=== PATIENT | male | born 1995 | race American Indian/Alaskan Native ===

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

== ENCOUNTER 2020-07-31 21:57 | Emergency (ER) | payer MEDICAID, OTHER, SELFPAY ==
[2020-07-31] MEDS ORDERED: LORazepam 2 MG/ML VIAL IM ONE ×2 (22:31→22:35)
[2020-07-31] MEDS ORDERED: HALOPERIDOL LACTATE 5 MG/1 ML INJ IM ONE (22:31)
[2020-07-31] MEDS ORDERED: diphenhydrAMINE 50 MG/ML VIAL IM ONE (22:32)
[2020-07-31 23:35] LABS: Basophils % (Auto) 0.7 % (0.0-1.8); Eosinophils % (Auto) 0.3 % (0.0-4.3); Hematocrit 36.2 % (35.5-45.6); Hemoglobin 12.4 gm/dl (11.8-15.2); Lymphocytes # (Auto) 0.5 K/mm3 (1.2-5.4); Lymphocytes % (Auto) 17.3 % (13.4-35.0); Mean Corpuscular HGB Conc 34 % (32-34); Mean Corpuscular Volume 86 fl (84-94); Monocytes # (Auto) 0.1 K/mm3 (0.0-0.8); Monocytes % (Auto) 4.7 % (0.0-7.3); Platelet Count 218 K/mm3 (140-440); Red Blood Count 4.22 M/mm3 (3.65-5.03); Red Cell Distribution Width 13.8 % (13.2-15.2)
[2020-07-31 23:59] LABS: BUN/Creatinine Ratio 14; Blood Urea Nitrogen 14 mg/dL (9-20); Calcium 9.1 mg/dL (8.4-10.2); Hemolysis Index 10
--- NOTE | 2020-08-01 00:14 | Emergency Department Report ---
ED Fever HPI - General Chief Complaint: Psych Stated Complaint: MH EVALUATION Time Seen by Provider: 07/31/20 22:25 ED Review of Systems ROS: Stated complaint: MH EVALUATION Other details as noted in HPI ED Past Medical Hx - Past Medical History Hx Psychiatric Treatment: Yes (ADD) - Surgical History Past Surgical History?: No - Social History Smoking Status: Unknown if ever smoked Substance Use Type: None - Medications Home Medications: Home Medications Medication Instructions Recorded Confirmed Last Taken Type No Known Home Medications [No 11/28/16 11/28/16 Unknown History Reported Home Medications] ED Physical Exam - General Limitations: No Limitations ED Course Vital Signs 07/31/20 22:01 Temperature 98.5 F Pulse Rate 134 H Respiratory 20 Rate Blood Pressure 139/60 O2 Sat by Pulse 97 Oximetry Critical care attestation.: If time is entered above; I have spent that time in minutes in the direct care of this critically ill patient, excluding procedure time. ED Disposition Condition: Stable
--- NOTE | 2020-08-01 00:18 | Emergency Department Report ---
ED Psych HPI - General Chief Complaint: Psych Stated Complaint: MH EVALUATION Time Seen by Provider: 07/31/20 22:25 Source: patient Mode of arrival: Ambulatory - History of Present Illness Initial Comments: Patient is presenting with aggressive behavior and appears altered. Patient verbally aggressive is also banging on the culver. Think he will actually say to me is that he wants me to call his mother but would not give his mother's name. Patient seems quite paranoid. No other history is known at this time. - Related Data Previous Rx's Medication Instructions Recorded Last Taken Type Divalproex Dr [DepaKOTE DR] 500 mg PO BID #60 tablet 08/04/20 Unknown Rx haloperidoL [Haldol] 5 mg PO QHS #30 tab 08/04/20 Unknown Rx Allergies Allergy/AdvReac Type Severity Reaction Status Date / Time No Known Allergies Allergy Unverified 10/17/13 14:18 ED Review of Systems ROS: Stated complaint: MH EVALUATION Other details as noted in HPI Comment: Unobtainable due to pts medical conditions ED Past Medical Hx - Past Medical History Hx Psychiatric Treatment: Yes (ADD) - Surgical History Past Surgical History?: No - Social History Smoking Status: Unknown if ever smoked Substance Use Type: None - Medications Home Medications: Home Medications Medication Instructions Recorded Confirmed Last Taken Type Divalproex Dr [DepaKOTE DR] 500 mg PO BID #60 tablet 08/04/20 Unknown Rx haloperidoL [Haldol] 5 mg PO QHS #30 tab 08/04/20 Unknown Rx ED Physical Exam - General Limitations: No Limitations General appearance: alert, in no apparent distress - Head Head exam: Present: atraumatic, normocephalic - Eye Eye exam: Present: normal appearance, PERRL, EOMI - ENT ENT exam: Present: mucous membranes moist - Neck Neck exam: Present: normal inspection - Respiratory Respiratory exam: Present: normal lung sounds bilaterally. Absent: respiratory distress, wheezes, rales, rhonchi - Cardiovascular Cardiovascular Exam: Present: normal rhythm, tachycardia, normal heart sounds. Absent: systolic murmur, diastolic murmur, rubs, gallop - GI/Abdominal GI/Abdominal exam: Present: soft, normal bowel sounds. Absent: distended, tenderness, guarding, rebound - Rectal Rectal exam: Present: deferred - Extremities Exam Extremities exam: Present: normal inspection - Back Exam Back exam: Present: normal inspection - Neurological Exam Neurological exam: Present: alert, oriented X3 - Psychiatric Psychiatric exam: Present: normal affect, normal mood - Skin Skin exam: Present: warm, dry, intact, normal color. Absent: rash ED Course Vital Signs 07/31/20 08/01/20 08/01/20 22:01 05:18 08:03 Temperature 98.5 F 98.6 F Pulse Rate 134 H 68 Respiratory 20 16 20 Rate Blood Pressure 139/60 Blood Pressure 125/50 [Left] O2 Sat by Pulse 97 97 97 Oximetry 08/01/20 08/01/20 08/02/20 09:00 19:00 02:00 Temperature 98.1 F 98.2 F Pulse Rate 89 64 Respiratory 18 18 16 Rate Blood Pressure Blood Pressure 99/73 115/64 [Left] O2 Sat by Pulse 97 98 97 Oximetry 08/02/20 08/02/20 08/03/20 07:39 19:25 00:15 Temperature 98.6 F 97.9 F 97.9 F Pulse Rate 61 81 65 Respiratory 20 18 18 Rate Blood Pressure Blood Pressure 110/70 101/56 126/62 [Left] O2 Sat by Pulse 98 99 100 Oximetry 08/03/20 08/03/20 08/03/20 07:50 13:45 19:31 Temperature 97.8 F 98.6 F 98.3 F Pulse Rate 86 82 84 Respiratory 20 16 17 Rate Blood Pressure 114/72 Blood Pressure 109/71 126/68 [Left] O2 Sat by Pulse 98 100 100 Oximetry 08/03/20 08/04/20 20:00 08:51 Temperature 97.6 F Pulse Rate 82 69 Respiratory 18 20 Rate Blood Pressure Blood Pressure 114/72 125/84 [Left] O2 Sat by Pulse 100 98 Oximetry - Reevaluation(s) Reevaluation #1: 08/04/20 11:23 [facility] Psychiatry Progress Note Patient Name: JAIMIE HARRIS Date of : 89 Patient Status: Emergency Emergency Provider: COLE BARRIENTOS Date: 08/04/20 10:41 Initialization Date: 08/04/20 10:41 Subjective - Reason for Consult Consult date: 08/04/20 Reason for consult: MHE Requesting physician: CARLITO BUNN - Chief Complaint Chief complaint: Psych Progress Patient seen this AM, more lucid, appears well groomed and very cooperative this AM. Patient states he feels better since been here, was able to have conversation with mom. Pt says he no longer hears voices, has been cooperative with nurses and when he leaves, he plans to help mom and get himself sorted out. REVIEW OF SYSTEMS Constitutional: Negative for weight loss ENT: Negative for stridor Respiratory: Negative for cough or hemoptysis All other systems reviewed and are negative MENTAL STATUS EXAMINATION General Appearance and Behavior: Age appropriate, good hygiene, wearing appropriate clothes, good eye contact, cooperative polite with questioning. Cooperation: Participating/engaged Psychomotor Behavior: unremarkable and within normal limits Mood: Good Affect and affective range: congruent with mood Thought Process: Fluent/Logical, Thought Content: Within reality, Speech: Normal volume, Regular rate and rhythm, Intellectual Functioning: Average Suicidal Ideation: Denies SI Homicidal Ideation: Denies HI Impulse Control: Unimpaired Insight and Judgment: Normal insight and judgment, Memory: Normal, Attention: Normal, Orientation: Alert, oriented. Diagnoses: Assessment and Plan - Psychiatric problem (1) Schizoaffective disorder Current Visit: Yes Status: Acute F25.9 Treatment Plan Will start patient onHaldol and deparkote as outpt/ MEDICATIONS: Risks, benefits and alternatives of medications discussed with the patient, questions answered and consent obtained from patient. PSYCHOTHERAPY: Supportive psychotherapy provided MEDICAL: Per primary team DELIRIUM PRECAUTIONS: Please re-orient patient frequently, keep lights on during the day, and minimize benzodiazepines and opiates as these medications could worsen patient's confusion. POOL ATTENDANT: DISPOSITION: Do not Recommend acute inpatient psychiatric hospitalization at this time UNTIL drug screen completed. Case discussed with Dr. Stokes who agrees with current disposition LEGAL STATUS: 1013 rescinded FOLLOW-UP: Will sign off Thank you for the consult. Please contact with any questions and/or concern ED Medical Decision Making - Lab Data Result diagrams: 07/31/20 23:22 07/31/20 23:22 Lab Results 07/31/20 07/31/20 07/31/20 Range/Units 23:22 23:22 23:22 WBC 3.2 L (4.5-11.0) K/mm3 RBC 4.22 (3.65-5.03) M/mm3 Hgb 12.4 (11.8-15.2) gm/dl Hct 36.2 (35.5-45.6) % MCV 86 (84-94) fl MCH 30 (28-32) pg MCHC 34 (32-34) % RDW 13.8 (13.2-15.2) % Plt Count 218 (140-440) K/mm3 Lymph % (Auto) 17.3 (13.4-35.0) % Carter % (Auto) 4.7 (0.0-7.3) % Eos % (Auto) 0.3 (0.0-4.3) % Baso % (Auto) 0.7 (0.0-1.8) % Lymph # (Auto) 0.5 L (1.2-5.4) K/mm3 Carter # (Auto) 0.1 (0.0-0.8) K/mm3 Eos # (Auto) 0.0 (0.0-0.4) K/mm3 Baso # (Auto) 0.0 (0.0-0.1) K/mm3 Seg Neutrophils % 77.0 H (40.0-70.0) % Seg Neutrophils # 2.4 (1.8-7.7) K/mm3 Sodium 137 (137-145) mmol/L Potassium 3.5 L (3.6-5.0) mmol/L Chloride 102.4 (98-107) mmol/L Carbon Dioxide 24 (22-30) mmol/L Anion Gap 14 mmol/L BUN 14 (9-20) mg/dL Creatinine 1.0 (0.8-1.3) mg/dL Estimated GFR > 60 ml/min BUN/Creatinine Ratio 14 % Glucose 104 H (75-100) mg/dL Calcium 9.1 (8.4-10.2) mg/dL Urine Color (Yellow) Urine Turbidity (Clear) Urine pH (5.0-7.0) Ur Specific [place] (1.003-1.030) Urine Protein (Negative) mg/dL Urine Glucose (UA) (Negative) mg/dL Urine Ketones (Negative) mg/dL Urine Blood (Negative) Urine Nitrite (Negative) Urine Bilirubin (Negative) Urine Urobilinogen (<2.0) mg/dL Ur Leukocyte Esterase (Negative) Urine WBC (Auto) (0.0-6.0) /HPF Urine RBC (Auto) (0.0-6.0) /HPF U Epithel Cells (Auto) (0-13.0) /HPF Urine Mucus /HPF Salicylates < 0.3 L (2.8-20.0) mg/dL Urine Opiates Screen Urine Methadone Screen Acetaminophen (10.0-30.0) ug/mL Ur Barbiturates Screen Ur Phencyclidine Scrn Ur Amphetamines Screen U Benzodiazepines Scrn Urine Cocaine Screen U Marijuana (THC) Screen Drugs of Abuse Note Plasma/Serum Alcohol (0-0.07) % Coronavirus (PCR) (Negative) 07/31/20 07/31/20 07/31/20 Range/Units 23:22 23:22 Unknown WBC (4.5-11.0) K/mm3 RBC (3.65-5.03) M/mm3 Hgb (11.8-15.2) gm/dl Hct (35.5-45.6) % MCV (84-94) fl MCH (28-32) pg MCHC (32-34) % RDW (13.2-15.2) % Plt Count (140-440) K/mm3 Lymph % (Auto) (13.4-35.0) % Carter % (Auto) (0.0-7.3) % Eos % (Auto) (0.0-4.3) % Baso % (Auto) (0.0-1.8) % Lymph # (Auto) (1.2-5.4) K/mm3 Carter # (Auto) (0.0-0.8) K/mm3 Eos # (Auto) (0.0-0.4) K/mm3 Baso # (Auto) (0.0-0.1) K/mm3 Seg Neutrophils % (40.0-70.0) % Seg Neutrophils # (1.8-7.7) K/mm3 Sodium (137-145) mmol/L Potassium (3.6-5.0) mmol/L Chloride (98-107) mmol/L Carbon Dioxide (22-30) mmol/L Anion Gap mmol/L BUN (9-20) mg/dL Creatinine (0.8-1.3) mg/dL Estimated GFR ml/min BUN/Creatinine Ratio % Glucose (75-100) mg/dL Calcium (8.4-10.2) mg/dL Urine Color (Yellow) Urine Turbidity (Clear) Urine pH (5.0-7.0) Ur Specific [place] (1.003-1.030) Urine Protein (Negative) mg/dL Urine Glucose (UA) (Negative) mg/dL Urine Ketones (Negative) mg/dL Urine Blood (Negative) Urine Nitrite (Negative) Urine Bilirubin (Negative) Urine Urobilinogen (<2.0) mg/dL Ur Leukocyte Esterase (Negative) Urine WBC (Auto) (0.0-6.0) /HPF Urine RBC (Auto) (0.0-6.0) /HPF U Epithel Cells (Auto) (0-13.0) /HPF Urine Mucus /HPF Salicylates (2.8-20.0) mg/dL Urine Opiates Screen Urine Methadone Screen Acetaminophen 5.0 L (10.0-30.0) ug/mL Ur Barbiturates Screen Ur Phencyclidine Scrn Ur Amphetamines Screen U Benzodiazepines Scrn Urine Cocaine Screen U Marijuana (THC) Screen Drugs of Abuse Note Plasma/Serum Alcohol < 0.01 (0-0.07) % Coronavirus (PCR) Negative (Negative) 08/01/20 08/01/20 Range/Units Unknown Unknown WBC (4.5-11.0) K/mm3 RBC (3.65-5.03) M/mm3 Hgb (11.8-15.2) gm/dl Hct (35.5-45.6) % MCV (84-94) fl MCH (28-32) pg MCHC (32-34) % RDW (13.2-15.2) % Plt Count (140-440) K/mm3 Lymph % (Auto) (13.4-35.0) % Carter % (Auto) (0.0-7.3) % Eos % (Auto) (0.0-4.3) % Baso % (Auto) (0.0-1.8) % Lymph # (Auto) (1.2-5.4) K/mm3 Carter # (Auto) (0.0-0.8) K/mm3 Eos # (Auto) (0.0-0.4) K/mm3 Baso # (Auto) (0.0-0.1) K/mm3 Seg Neutrophils % (40.0-70.0) % Seg Neutrophils # (1.8-7.7) K/mm3 Sodium (137-145) mmol/L Potassium (3.6-5.0) mmol/L Chloride (98-107) mmol/L Carbon Dioxide (22-30) mmol/L Anion Gap mmol/L BUN (9-20) mg/dL Creatinine (0.8-1.3) mg/dL Estimated GFR ml/min BUN/Creatinine Ratio % Glucose (75-100) mg/dL Calcium (8.4-10.2) mg/dL Urine Color Rosaura (Yellow) Urine Turbidity Slightly-cloudy (Clear) Urine pH 5.0 (5.0-7.0) Ur Specific [place] 1.033 H (1.003-1.030) Urine Protein 100 mg/dl (Negative) mg/dL Urine Glucose (UA) Neg (Negative) mg/dL Urine Ketones Tr (Negative) mg/dL Urine Blood Neg (Negative) Urine Nitrite Neg (Negative) Urine Bilirubin Neg (Negative) Urine Urobilinogen 4.0 (<2.0) mg/dL Ur Leukocyte Esterase Neg (Negative) Urine WBC (Auto) 14.0 H (0.0-6.0) /HPF Urine RBC (Auto) 2.0 (0.0-6.0) /HPF U Epithel Cells (Auto) 1.0 (0-13.0) /HPF Urine Mucus 3+ /HPF Salicylates (2.8-20.0) mg/dL Urine Opiates Screen Negative Urine Methadone Screen Negative Acetaminophen (10.0-30.0) ug/mL Ur Barbiturates Screen Negative Ur Phencyclidine Scrn Negative Ur Amphetamines Screen Negative U Benzodiazepines Scrn Negative Urine Cocaine Screen Negative U Marijuana (THC) Screen Presumptive positive Drugs of Abuse Note Disclamer Plasma/Serum Alcohol (0-0.07) % Coronavirus (PCR) (Negative) - Medical Decision Making Patient presented with a acute psychosis and aggressive behavior. Patient is restarted on medications. He has been stabilized and seen by psychiatry team. Is no longer requiring 1013 to be discharged home. Critical care attestation.: If time is entered above; I have spent that time in minutes in the direct care of this critically ill patient, excluding procedure time. ED Disposition Clinical Impression: Schizoaffective disorder Disposition: DC-01 TO HOME OR SELFCARE Is pt being admited?: No Does the pt Need Aspirin: No Condition: Stable Additional Instructions: Professional and Agency Contacts To help Resolve Crises(11/10) [place] Crisis Line: Suicide Prevention Line: Crisis Text Line: Text START to 858459 Emergency: 911 Outpatient COMMUNITY Behavioral Health Resources: [place]: [facility] [address] [place], [place] [address] [place]: [facility] [address] [place] [address] [place]: [facility] - [address] [place] [address] Tuesday thru Tuesday - 8am - 5pm [place]: [facility] Address: [address] [place] [address] [place]: [facility] Address: [address] [place], [place] [address]Tuesday thru Tuesday- 7am-2pm [facility] Address: [address] [place] [address] Tuesday thru Tuesday: 8:30AM-5PM In case of an emergency, please contact the following numbers: [place] Crisis and Access Line: Number: Crisis Text Line: (Text START) Number: 210952 Suicide Prevention Line: Number: Emergency Number: 911 SUBSTANCE ABUSE PROGRAMS: [facility]: Location: [place], [place] [facility] Address: [address] [place] [address] [facility]: Address: [address] [place] [address] [facility]: Address: [address] [place] [address] [facility]: Address: [address] [place] [address] [facility] Address: [address] [place] [address]. Please contact above numbers to attempt placement into free based program. Medicaid Programs: [facility]: Address: [address] [facility], [place] [address] [facility]: Address: [address] [place] [address] Prescriptions: haloperidoL [Haldol] 5 mg PO QHS #[address] [DepaKOTE DR] 500 mg PO BID #60 tablet Referrals: PRIMARY CARE, [Primary Care Provider] - 3-5 Days Time of Disposition: 11:25
--- NOTE | 2020-08-01 10:12 | Consultation ---
History of Present Illness - Reason for Consult Consult date: 08/01/20 Reason for consult: MHE Requesting physician: COLE BARRIENTOS - History of Present Psychiatric Illness Per ED Provider: Patient is presenting with aggressive behavior and appears altered. Patient verbally aggressive is also banging on the culver. Think he will actually say to me is that he wants me to call his mother but would not give his mother's name. Patient seems quite paranoid. No other history is known at this time. PSYCH HPI Patient is a single, currently unemployed on SSI 24-year-old -Armenian male with past psychiatric history of schizophrenia and unspecified past medical history who presented to the ED with chief complaint of violent behavior. Patient states he is here because he of violent behavior, because nobody believes what he says and what he hears. Patient presented as withdrawn during this encounter, appears slightly confused with the responses and response to internal stimulus in which patient just laughed radically without any funny statement being made. Concern for baseline poor intellectual/reduced cognitive function at this time. Will review collateral information. PAST PSYCHIATRIC HISTORY Diagnoses: Schizophrenia Suicide attempts or Self-harm behavior: None report Prior psychiatric hospitalizations: Unknown Substance Abuse history: Marijuana and ice Previous psychiatric medications tried: None report Outpatient treatment: None reported PAST MEDICAL HISTORY: Denies Family Psychiatric History: None reported or documented SOCIAL HISTORY Marital Status: Single Living Arrangements: With mother Employment Status: Unemployed SSI Access to guns/weapons: None reported Education: Denies History of Abuse: None Legal History: None report REVIEW OF SYSTEMS Constitutional: Negative for weight loss ENT: Negative for stridor Respiratory: Negative for cough or hemoptysis All other systems reviewed and are negative MENTAL STATUS EXAMINATION General Appearance and Behavior: Age appropriate, good hygiene, not wearing appropriate clothes, good eye contact, cooperative polite with questioning. Cooperation: Participating/engaged Psychomotor Behavior: Psychomotor agitation Mood: Good Affect and affective range: euthymic, euphoric Thought Process:Circumstantial, Illogical, Thought Content: Flight of ideas, Illogical, Grandiose, Speech: Normal speech rate and volume Intellectual Functioning: Average Suicidal Ideation: Denies SI Homicidal Ideation: Denies HIl Impulse Control: Impaired Insight and Judgment: Limited insight and judgment Memory: Normal, Attention: Divided attention impaired Orientation: Alert, oriented, Diagnoses: Assessment and Plan - Psychiatric problem (1) Schizoaffective disorder Current Visit: Yes Status: Acute F25.9 Treatment Plan Recommends a drug screen to be done MEDICATIONS: Risks, benefits and alternatives of medications discussed with the patient, questions answered and consent obtained from patient. PSYCHOTHERAPY: Supportive psychotherapy provided MEDICAL: Per primary team DELIRIUM PRECAUTIONS: Please re-orient patient frequently, keep lights on during the day, and minimize benzodiazepines and opiates as these medications could worsen patient's confusion. STORE DETECTIVE: DISPOSITION: Do not Recommend acute inpatient psychiatric hospitalization at this time UNTIL drug screen completed. Case discussed with Dr. Stokes who agrees with current disposition LEGAL STATUS: 1013 FOLLOW-UP: Will follow Thank you for the consult. Please contact with any questions and/or concerns. Medications and Allergies Allergies Allergy/AdvReac Type Severity Reaction Status Date / Time No Known Allergies Allergy Unverified 10/17/13 14:18 Home Medications Medication Instructions Recorded Confirmed Last Taken Type No Known Home Medications [No 11/28/16 11/28/16 Unknown History Reported Home Medications] Mental Status Exam - Vital signs Last Vital Signs Temp 98.5 F 07/31/20 22:01 Pulse 134 H 07/31/20 22:01 Resp 16 08/01/20 05:18 BP 139/60 07/31/20 22:01 Pulse Ox 97 08/01/20 05:18 Results Result Diagrams: 07/31/20 23:22 07/31/20 23:22 Abnormal lab results 07/31/20 07/31/20 07/31/20 Range/Units 23:22 23:22 23:22 WBC 3.2 L (4.5-11.0) K/mm3 Lymph # (Auto) 0.5 L (1.2-5.4) K/mm3 Seg Neutrophils % 77.0 H (40.0-70.0) % Potassium 3.5 L (3.6-5.0) mmol/L Glucose 104 H (75-100) mg/dL Salicylates < 0.3 L (2.8-20.0) mg/dL Acetaminophen (10.0-30.0) ug/mL 07/31/20 Range/Units 23:22 WBC (4.5-11.0) K/mm3 Lymph # (Auto) (1.2-5.4) K/mm3 Seg Neutrophils % (40.0-70.0) % Potassium (3.6-5.0) mmol/L Glucose (75-100) mg/dL Salicylates (2.8-20.0) mg/dL Acetaminophen 5.0 L (10.0-30.0) ug/mL All other labs normal. Assessment and Plan - Psychiatric problem (1) Schizoaffective disorder Current Visit: Yes Status: Acute
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
[2020-08-01 14:44] LABS: Amphetamine Screen,Urine Negative; Cocaine Screen,Urine Negative; Methadone Screen,Urine Negative; Opiate Screen,Urine Negative
[2020-08-01 14:45] LABS: Bilirubin,Urine NEG (Negative); Blood,Urine NEG (Negative); Color,Urine Amber (Yellow); Mucus,Urine 3+ /HPF
[2020-08-01 15:07] LABS: Benzodiazepines Screen,Urine Negative
[2020-08-01 15:08] LABS: Cannabinoid Screen,Urine PRESUMPTIVE POSITIVE
--- NOTE | 2020-08-02 11:12 | Event Note ---
Date: 08/02/20 S: Patient has no complaints O: Vital signs stable; patient is calm and cooperative A: Schizoaffective disorder P: 1013; awaiting inpatient psychiatric placement
[2020-08-02] MEDS ORDERED: ZIPRASIDONE MESYLATE 20 MG VIAL IM ONE (16:04)
[2020-08-02] MEDS ORDERED: WATER FOR INJ Sterile (PF) 10 ML ONE (16:08)
--- NOTE | 2020-08-03 09:20 | Event Note ---
Date: 08/03/20 Nurse was concerned about the patient's pyuria. Otherwise patient is without complaints. I think it appropriate to empirically treat him with a few days of Bactrim. Assessment: Presumptive UTI
[2020-08-03] MEDS: SULFAMETHOXAZOLE/TRIMETHOPRIM 800/160MG DS TAB PO SCH ×2 (11:27→22:00)
--- NOTE | 2020-08-03 13:36 | Event Note ---
Date: 08/03/20 S: Patient has no complaints. O: Vital signs stable; patient is calm and cooperative A: Schizoaffective disorder P: 1013; awaiting inpatient psychiatric placement
[2020-08-04 08:52] VITALS: BP 125/84
--- NOTE | 2020-08-04 10:45 | Progress Note ---
Subjective - Reason for Consult Consult date: 08/04/20 Reason for consult: MHE Requesting physician: CARLITO BUNN - Chief Complaint Chief complaint: Psych Progress Patient seen this AM, more lucid, appears well groomed and very cooperative this AM. Patient states he feels better since been here, was able to have conversation with mom. Pt says he no longer hears voices, has been cooperative with nurses and when he leaves, he plans to help mom and get himself sorted out. REVIEW OF SYSTEMS Constitutional: Negative for weight loss ENT: Negative for stridor Respiratory: Negative for cough or hemoptysis All other systems reviewed and are negative MENTAL STATUS EXAMINATION General Appearance and Behavior: Age appropriate, good hygiene, wearing appropriate clothes, good eye contact, cooperative polite with questioning. Cooperation: Participating/engaged Psychomotor Behavior: unremarkable and within normal limits Mood: Good Affect and affective range: congruent with mood Thought Process: Fluent/Logical, Thought Content: Within reality, Speech: Normal volume, Regular rate and rhythm, Intellectual Functioning: Average Suicidal Ideation: Denies SI Homicidal Ideation: Denies HI Impulse Control: Unimpaired Insight and Judgment: Normal insight and judgment, Memory: Normal, Attention: Normal, Orientation: Alert, oriented. Diagnoses: Assessment and Plan - Psychiatric problem (1) Schizoaffective disorder Current Visit: Yes Status: Acute F25.9 Treatment Plan Will start patient onHaldol and deparkote as outpt/ MEDICATIONS: Risks, benefits and alternatives of medications discussed with the patient, questions answered and consent obtained from patient. PSYCHOTHERAPY: Supportive psychotherapy provided MEDICAL: Per primary team DELIRIUM PRECAUTIONS: Please re-orient patient frequently, keep lights on during the day, and minimize benzodiazepines and opiates as these medications could worsen patient's confusion. MANAGER HIGHWAY: DISPOSITION: Do not Recommend acute inpatient psychiatric hospitalization at this time UNTIL drug screen completed. Case discussed with Dr. Stokes who agrees with current disposition LEGAL STATUS: 1013 rescinded FOLLOW-UP: Will sign off Thank you for the consult. Please contact with any questions and/or concerns. Mental Status Exam - Vital signs Last Vital Signs Temp 97.6 F 08/04/20 08:51 Pulse 69 08/04/20 08:51 Resp 20 08/04/20 08:51 BP 125/84 08/04/20 08:51 Pulse Ox 98 08/04/20 08:51 Assessment and Plan - Patient Problems (1) Schizoaffective disorder Status: Acute
[2020-08-04] MEDS: SULFAMETHOXAZOLE/TRIMETHOPRIM 800/160MG DS TAB PO SCH (11:06)
== END 2020-08-04 11:49 | disposition home or self-care (01) ==
LOC: ED 21:57
DX: F25.9 Schizoaffective disorder, unspecified (principal); Z20.822 Contact with and (suspected) exposure to COVID-19; Z79.899 Other long term (current) drug therapy
CPT/HCPCS: 36415; 80048; 80307; 81001; 85025; 87086; 96372; 99284; J1200; J1630; J2060; J3486; U0003; 80320; G0480

== ENCOUNTER 2021-05-20 17:22 | Emergency (ER) | payer OTHER ==
--- NOTE | 2021-05-20 18:32 | Emergency Department Report ---
HPI - General Chief Complaint: Psych Time Seen by Provider: 05/20/21 17:37 - HPI HPI: This is a 25-year-old -French male presents to the emergency department for a mental health evaluation. When asked how he got to the emergency department the patient initially said that he walked here, and then later said that he took an uber. Patient says that he came because his mother told him that he needed to go to the hospital. He has some rambling and tangential thoughts and speech. He started going on a tangent about getting a place to sleep in [place]. He started talking about being discharged so that he can go to a different hospital, then a mental health facility/senior care. The patient also stated that he came to the emergency department so that "my mother will give me some money." The patient appears paranoid and his thought pattern is difficult to follow. Patient has been here 1 time previously, in July 2020, for a mental health evaluation with acute psychosis at that time. He denies any suicidal or homicidal ideations. He denies having any hallucinations. ED Past Medical Hx - Past Medical History Previous Medical History?: Yes Hx Psychiatric Treatment: Yes (ADD/ BIPOLAR) - Social History Smoking Status: Current Every Day Smoker Substance Use Type: Other - Medications Home Medications: Home Medications Medication Instructions Recorded Confirmed Last Taken Type No Known Home Medications [No 05/20/21 05/20/21 Unknown History Reported Home Medications] ED Review of Systems ROS: Stated complaint: MH/BIPOLAR Other details as noted in HPI Comment: All other systems reviewed and negative Constitutional: denies: chills, fever Respiratory: denies: cough, shortness of breath Cardiovascular: denies: chest pain, palpitations Gastrointestinal: denies: abdominal pain, vomiting Neurological: denies: headache, weakness Psychiatric: denies: auditory hallucinations, visual hallucinations, homicidal thoughts, suicidal thoughts Physical Exam - Physical Exam Vital Signs: Vital Signs 05/20/21 05/20/21 17:26 18:04 Temperature 99 F Pulse Rate 95 H Respiratory 16 Rate Blood Pressure 112/80 [Left] O2 Sat by Pulse 97 97 Oximetry Physical Exam: GENERAL: The patient is well-developed well-nourished. HENT: Normocephalic. Atraumatic. Patient has moist mucous membranes. EYES: Extraocular motions are intact. NECK: Supple. Trachea is midline. CHEST/LUNGS: Clear to auscultation. There is no respiratory distress noted. HEART/CARDIOVASCULAR: Regular. There is no tachycardia. There is no murmur. ABDOMEN: Abdomen is soft, nontender. Patient has normal bowel sounds. SKIN: Skin is warm and dry. NEURO: The patient is awake, alert, and oriented. No slurred speech. MUSCULOSKELETAL: There is no tenderness or deformity. There is no limitation range of motion. PSYCH: The patient appears manic. Pressured speech, rambling tangential thoughts. ED Course Vital Signs 05/20/21 05/20/21 17:26 18:04 Temperature 99 F Pulse Rate 95 H Respiratory 16 Rate Blood Pressure 112/80 [Left] O2 Sat by Pulse 97 97 Oximetry - Reevaluation(s) Reevaluation #1: 05/20/21 21:04 I would speak to the patient again to explain the importance of getting blood work. I tried to explain that the patient has been made a 1013 and that he will remain in the emergency department until he is medically cleared and accepted at a facility, or he no longer requires inpatient stabilization and the 1013 is rescinded and the patient discharged home. However, the patient did not want to hear what I was saying. He seems to think that he will only be here overnight and once again is refusing blood work. At this time, the patient is otherwise calm and therefore I do not feel I need to sedate the patient just to get the blood work done. He will be seen in the a.m. by the psychiatric team who can start medications. We will continue to monitor the patient and if the patient becomes agitated or aggressive, then we will give appropriate medication. ED Medical Decision Making - Medical Decision Making This patient presents for what appears to be a mental health evaluation. When asked why he comes to the emergency department he goes on multiple different tangents including trying to get into some type of senior care/psychiatric facility in [place], needing to come to the emergency department so we can get money from his mother. The patient also appears paranoid. He is extremely concerned about giving us blood for labs as if we are stealing from him. He was seen by the psychiatric arbor press operator, [place], who agrees that the patient is exhibiting signs of acute psychosis and requires a 1013 and inpatient stabilization. A 1013 has been filled out by me. However, I have had multiple conversations with this patient and he refuses to give blood work or a urine sample. If left alone, the patient remains calm so I did not feel that the patient required any immediate sedation. The patient will be seen by behavioral health and I suspect they will attempt to start medications. If the patient starts to become agitated or aggressive, he may need medication at that time. We will continue to monitor the patient during his ED course and continue to attempt to get blood work and urinalysis for medical clearance. Critical Care Time: No Critical care attestation.: If time is entered above; I have spent that time in minutes in the direct care of this critically ill patient, excluding procedure time. ED Disposition Clinical Impression: Acute psychosis Disposition: 30 STILL A PATIENT Is pt being admited?: No Condition: Stable Time of Disposition: 23:36
[2021-05-21 00:51] LABS: Basophils # (Auto) 0.1 K/mm3 (0.0-0.1); Basophils % (Auto) 0.7 % (0.0-1.8); Eosinophils # (Auto) 0.1 K/mm3 (0.0-0.4); Eosinophils % (Auto) 1.4 % (0.0-4.3); Hematocrit 35.5 % (35.5-45.6); Hemoglobin 12.1 gm/dl (11.8-15.2); Lymphocytes # (Auto) 2.6 K/mm3 (1.2-5.4); Lymphocytes % (Auto) 34.1 % (13.4-35.0); Mean Corpuscular HGB Conc 34 % (32-34); Mean Corpuscular Volume 83 fl (84-94); Monocytes # (Auto) 0.9 K/mm3 (0.0-0.8); Monocytes % (Auto) 11.7 % (0.0-7.3); Platelet Count 292 K/mm3 (140-440); Red Blood Count 4.27 M/mm3 (3.65-5.03); Red Cell Distribution Width 13.5 % (13.2-15.2)
[2021-05-21 01:04] LABS: BUN/Creatinine Ratio 15; Blood Urea Nitrogen 17 mg/dL (9-20); Hemolysis Index 7
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
--- NOTE | 2021-05-21 18:58 | Emergency Department Report ---
Blank Doc - Documentation Documentation: 25-year-old male with acute psychosis uncooperative with ED treatment. As per medical record review appears that patient is not taking oral medications, consenting to UA collection or Covid test results. Also there are not any vital signs are record today. Placement pending
[2021-05-21] MEDS: traZODone 50 MG TAB PO SCH (22:45)
[2021-05-21] MEDS: QUEtiapine 25 MG TAB PO SCH (22:45)
[2021-05-21] MEDS: DIVALPROEX DR 125 MG TAB PO SCH (22:45)
[2021-05-22] MEDS: DIVALPROEX DR 125 MG TAB PO SCH ×2 (10:20→12:21)
--- NOTE | 2021-05-22 11:52 | Progress Note ---
Subjective - Reason for Consult Consult date: 05/22/21 Reason for consult: psychosis - Chief Complaint Chief complaint: The patient is seen today. He's better than he was yesterday. He is still speaking nonsensically. His speech is pressured. The patient denies SI/HI. I ask him was he hallucinating, he doesn't answer directly, he says "I have a problem bonding with people." I asked the patient again was he hearing or seeing things, he says "that doesn't matter what I'm seeing or hearing." REVIEW OF SYSTEMS Constitutional: Negative for weight loss ENT: Negative for stridor Respiratory: Negative for cough or hemoptysis All other systems reviewed and are negative MENTAL STATUS EXAMINATION General Appearance and Behavior: Age appropriate, good hygiene, wearing appropriate clothes, cooperative Cooperation: Participating, guarded Psychomotor Behavior: normal Mood: okay Affect and affective range: congruent with mood Thought Process: illogical, circumstantial Thought Content: hallucinations, SI Speech: Normal volume, Regular rate and rhythm, Suicidal Ideation: Passive Homicidal Ideation: Denies Hallucinations: Visual Delusions: Yes Impulse Control: Limited Insight and Judgment: Poor insight and judgment, Memory: Limited Attention: Preoccupied Orientation: Alert, oriented Assessment and Plan (1) Bipolar Disorder Treatment Plan 1013 Increase Depakote 250mg po BID Increase Seroquel 100mg po BID Trazodone 50mg po qhs Medical: per primary Disposition: Recommend acute psychiatric inpatient treatment Will follow. Thanks Case staffed with Dr. Stokes Mental Status Exam - Vital signs Last Vital Signs Temp 97.2 F L 05/22/21 03:13 Pulse 94 H 05/22/21 03:13 Resp 18 05/22/21 03:13 BP 125/88 05/22/21 03:13 Pulse Ox 100 05/22/21 03:13
[2021-05-22] MEDS: QUEtiapine 25 MG TAB PO SCH ×3 (12:20→22:17)
[2021-05-22 12:27] LABS: Bilirubin,Urine NEG (Negative); Blood,Urine NEG (Negative); Color,Urine Yellow (Yellow); Mucus,Urine 1+ /HPF; Protein,Urine <15 mg/dL mg/dL (Negative); RBC,Urine < 1.0 /HPF (0.0-6.0); Urobilinogen,Urine < 2.0 mg/dL (<2.0)
[2021-05-22 12:29] LABS: Benzodiazepines Screen,Urine Negative; Cannabinoid Screen,Urine Negative; Cocaine Screen,Urine Negative; Methadone Screen,Urine Negative; Opiate Screen,Urine Negative
[2021-05-22 12:49] LABS: Amphetamine Screen,Urine Positive
--- NOTE | 2021-05-22 13:48 | Emergency Department Report ---
Blank Doc - Documentation Documentation: 25-year-old male presenting with acute psychosis. UDS positive for amphetamin es. Mental health diagnosis of bipolar disorder. 1013 continued. Patient cooperative with p.o. medications. Awaiting placement.
[2021-05-22 20:20] VITALS: BP 149/82
[2021-05-22] MEDS ORDERED: QUEtiapine 100 MG TAB PO SCH (22:00)
[2021-05-22] MEDS ORDERED: DIVALPROEX DR 250 MG TAB PO SCH (22:00)
[2021-05-22] MEDS: traZODone 50 MG TAB PO SCH (22:17)
== END 2021-05-23 01:20 | disposition still patient (30) ==
LOC: ED 17:22
DX: F23 Brief psychotic disorder (principal); F31.9 Bipolar disorder, unspecified; F17.200 Nicotine dependence, unspecified, uncomplicated; Z20.822 Contact with and (suspected) exposure to COVID-19
CPT/HCPCS: 36415; 80048; 80307; 80320; 81001; 85025; 99285; G0480; U0003